=== PATIENT | male | born 1950 | race Caucasian/White ===

== ENCOUNTER 2016-04-28 18:28 | Inpatient (IN) | payer OTHER ==
[2016-04-28] MEDS ORDERED: ATIVAN IV ONE (18:56)
[2016-04-28] MEDS ORDERED: ATIVAN ONE (18:56)
[2016-04-28 18:58] LABS: BASO% 0.1 % (0.0-0.8); HEMATOCRIT 38.2 % (42.0-52.0); HEMOGLOBIN 13.4 g/dL (14.0-18.0); IMM GRAN# 0.03 X1000 (0.0-0.04); IMM GRAN% 0.3 % (0.0-0.5); LYMPH# 0.66 X1000 (1.2-3.4); LYMPH% 6.1 % (20.5-51.1); MANUAL DIFF NEEDED? NO; MCH 30.5 PG (27-31); MCHC 35.1 g/dL (33-37); MONO# 0.79 X1000 (0.11-0.59); MONO% 7.3 % (1.7-9.3); MPV 9.9 FL (7.4-10.4); NEUT% 86.2 % (42.2-75.2); PLT 309 X1000 (130-400); RBC 4.39 XMIL (4.7-6.1)
[2016-04-28 19:21] LABS: PROTIME 13.5 Seconds (12.1-15.5)
[2016-04-28 19:22] LABS: PTT PL 28.5 Seconds (22.6-43.9)
[2016-04-28 19:25] LABS: ALBUMIN 4.2 g/dL (3.5-5.0); CALCIUM 9.5 mg/dL (8.8-10.2); POTASSIUM 4.2 mmol/L (3.5-5.1); TOTAL BILIRUBIN 0.9 mg/dL (0.20-1.00); TOTAL PROTEIN 6.9 g/dL (6.3-8.3)
--- NOTE | 2016-04-28 19:28 | PROVIDER DOCUMENTATION ---
HPI-Neurological Disorder - General Chief Complaint: Altered Mental Status Stated Complaint: dizziness Time Seen by Provider: 04/28/16 18:47 Source: EMS Allergies/Adverse Reactions: Patient Allergies Allergy/AdvReac Type Severity Reaction Status Date / Time No Known Allergies Allergy Verified 04/28/16 18:34 Home Medications: Home Medication List Medication Instructions Recorded Confirmed Last Taken Type Leflunomide [Arava] 1 tab PO DAILY 11/09/15 04/28/16 11/09/15 History Butalb/APAP/Caffeine [Fioricet] 1 each PO Q4H PRN PRN #14 capsule 02/28/1604/28 Unknown Rx - History of Present Illness-Neuro Nature of Presenting Problem: PT PRESENTS TO THE ED CONFUSED,NOT COMMUNICATING.EMS REPORTS THEY WHERE CALLED TO THE BAR AND 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 Onset/Duration: reports: just prior to arrival Timing: reports: still present Context: reports: other (CONFUSED AND NOT COMMUNICATING.) Character of Altered Mental Status: reports: confused, trouble concentrating Any recent trauma/injury?: reports: none New weakness or altered sensation location:: reports: none Cognitive Baseline: alert but confused Gait Baseline: walks without assistance Similar Symptoms Previously?: No Recently seen or treated by another doctor?: No - Seizure First time to have a seizure?: No Episode Frequency: no prior episodes Status Epilepticus: No Preceding symptoms/context:: none Review of Systems - Adult - REVIEW OF SYSTEMS - ADULT ROS:: unobtainable per condition Constitutional: reports: fever Past History - Adult - PAST MEDICAL HISTORY-ADULT Review of Records: reports: Old Records Reviewed, Nursing Assessment Review, Medications Reviewed Cardiovascular: reports: HTN Musculoskeletal: reports: arthritis (rheumatoid) Neurological: reports: headaches/migraines - PRIOR SURGERIES/PROCEDURES Surgical/Procedure History: reports: reviewed, not pertinent - IMMUNIZATION STATUS Childhood Immunizations: See Nurse Assessment Flu Vaccine: See Nurse Assessment - FAMILY HISTORY Family History: reviewed, not pertinent Physical Exam- Neurological - Physical Exam-Neuro Initial Vital Signs Reviewed: Yes General Appearance: no apparent distress, obtunded Progress - PLAN OF CARE/RESULTS Progress/Plan/Lab Results: Laboratory Results - last 24 hr 04/28/16 04/28/16 04/28/16 18:33 18:43 18:43 WBC RBC Hgb Hct MCV MCH MCHC RDW Std Deviation Plt Count MPV Immature Gran % (Auto) Neut % (Auto) Lymph % (Auto) Morrow % (Auto) Eos % (Auto) Baso % (Auto) Immature Gran # (Auto) Neut # (Auto) Lymph # (Auto) Morrow # (Auto) Eos # (Auto) Baso # (Auto) PT INR APTT (Factor Assay) Sodium 127 L Potassium 4.2 Chloride 92 L Carbon Dioxide 17 L Anion Gap 18 BUN 18 Creatinine 1.3 H Estimated GFR/1.73 m2 55 BUN/Creatinine Ratio 14 Glucose 138 H POC Glucose 118 H Calculated Osmolality 259 Calcium 9.5 Total Bilirubin 0.90 AST 15 ALT 16 Alkaline Phosphatase 124 H Creatine Kinase 68 Troponin T Total Protein 6.9 Albumin 4.2 Globulin 3.0 Albumin/Globulin Ratio 2.0 Plasma Lactate 2.4 H Urine Source Urine Color Urine Clarity Urine pH Ur Specific [place] Urine Protein Urine Ketones Urine Blood Urine Nitrite Urine Bilirubin Urine Urobilinogen Urine Microscopic RBC Urine WBC Urine Microscopic WBC Urine Glucose Urine Opiates Screen Ur Oxycodone Screen Urine Methadone Screen Ur Barbituates Screen Ur Tricyclics Screen Ur Phencyclidine Scrn Ur Amphetamines Screen U Methamphetamines Scrn Urine MDMA Screen U Benzodiazepines Scrn Urine Cocaine Screen U Cannabinoids Screen Plasma/Serum Ethyl Alc 04/28/16 04/28/16 04/28/16 18:43 18:43 18:43 WBC 10.78 RBC 4.39 L Hgb 13.4 L Hct 38.2 L MCV 87.0 MCH 30.5 MCHC 35.1 RDW Std Deviation 14.2 Plt Count 309 MPV 9.9 Immature Gran % (Auto) 0.3 Neut % (Auto) 86.2 H Lymph % (Auto) 6.1 L Morrow % (Auto) 7.3 Eos % (Auto) 0.0 Baso % (Auto) 0.1 Immature Gran # (Auto) 0.03 Neut # (Auto) 9.29 H Lymph # (Auto) 0.66 L Morrow # (Auto) 0.79 H Eos # (Auto) 0.00 Baso # (Auto) 0.01 PT INR APTT (Factor Assay) Sodium Potassium Chloride Carbon Dioxide Anion Gap BUN Creatinine Estimated GFR/1.73 m2 BUN/Creatinine Ratio Glucose POC Glucose Calculated Osmolality Calcium Total Bilirubin AST ALT Alkaline Phosphatase Creatine Kinase Troponin T < 0.010 Total Protein Albumin Globulin Albumin/Globulin Ratio Plasma Lactate Urine Source Urine Color Urine Clarity Urine pH Ur Specific [place] Urine Protein Urine Ketones Urine Blood Urine Nitrite Urine Bilirubin Urine Urobilinogen Urine Microscopic RBC Urine WBC Urine Microscopic WBC Urine Glucose Urine Opiates Screen Ur Oxycodone Screen Urine Methadone Screen Ur Barbituates Screen Ur Tricyclics Screen Ur Phencyclidine Scrn Ur Amphetamines Screen U Methamphetamines Scrn Urine MDMA Screen U Benzodiazepines Scrn Urine Cocaine Screen U Cannabinoids Screen Plasma/Serum Ethyl Alc 04/28/16 04/28/16 04/28/16 18:43 19:30 19:30 WBC RBC Hgb Hct MCV MCH MCHC RDW Std Deviation Plt Count MPV Immature Gran % (Auto) Neut % (Auto) Lymph % (Auto) Morrow % (Auto) Eos % (Auto) Baso % (Auto) Immature Gran # (Auto) Neut # (Auto) Lymph # (Auto) Morrow # (Auto) Eos # (Auto) Baso # (Auto) PT 13.5 INR 1.00 APTT (Factor Assay) 28.5 Sodium Potassium Chloride Carbon Dioxide Anion Gap BUN Creatinine Estimated GFR/1.73 m2 BUN/Creatinine Ratio Glucose POC Glucose Calculated Osmolality Calcium Total Bilirubin AST ALT Alkaline Phosphatase Creatine Kinase Troponin T Total Protein Albumin Globulin Albumin/Globulin Ratio Plasma Lactate Urine Source VOIDED Urine Color YELLOW Urine Clarity SLIGHTLY CLOUDY A Urine pH 7.0 Ur Specific [place] 1.005 Urine Protein 2+(100 mg/dL) A Urine Ketones TRACE Urine Blood NEGATIVE Urine Nitrite NEGATIVE Urine Bilirubin NEGATIVE Urine Urobilinogen NORMAL Urine Microscopic RBC Not Reportable Urine WBC NEGATIVE Urine Microscopic WBC <10 Urine Glucose NEGATIVE Urine Opiates Screen NONE DETECTED Ur Oxycodone Screen NONE DETECTED Urine Methadone Screen NONE DETECTED Ur Barbituates Screen NONE DETECTED Ur Tricyclics Screen PRESUMPTIVE POSITIVE A Ur Phencyclidine Scrn NONE DETECTED Ur Amphetamines Screen PRESUMPTIVE POSITIVE A U Methamphetamines Scrn NONE DETECTED Urine MDMA Screen PRESUMPTIVE POSITIVE A U Benzodiazepines Scrn NONE DETECTED Urine Cocaine Screen NONE DETECTED U Cannabinoids Screen NONE DETECTED Plasma/Serum Ethyl Alc - CT/MRI 1 CT Study: Head Impression: Normal CT Results: NEGATIVE - CONSULTS/PCP/HOSPITALIST Notification #1 *Consult/PCP/Hospitalist*: Time Discussed: 20:05 Consult Disposition: Admit Departure - Departure Time of Disposition Order: 21:52 DIAGNOSIS: Altered mental status Qualifiers: Altered mental status type: disorientation Qualified Code(s): R41.0 - Disorientation, unspecified Disposition: ADMITTED INPATIENT 09 Certified Medical Emergency: Emergent Condition: Stable Attestation - Scribe Verification/Attestation Scribe:: Lloyd Rosa Acting as Scribe for:: Dwight Acharya Scribe documention review:: This chart was documented by a scribe and accurately reflects the service the provider performed and the decisions made by the provider.
[2016-04-28 19:32] LABS: URINE CULTURE PL NEEDED? NO; URINE SOURCE VOIDED
[2016-04-28 19:40] LABS: BILIRUBIN URINE NEGATIVE (NEGATIVE); BLOOD URINE NEGATIVE (NEGATIVE); CLARITY SLIGHTLY CLOUDY (CLEAR); COLOR YELLOW; GLUCOSE URINE NEGATIVE (NEGATIVE); SP GRAVITY URINE 1.005; UR AMPHETAMINES QUAL PRESUMPTIVE POSITIVE (NONE DETECT); UR BARBITUATES QUAL NONE DETECTED (NONE DETECT); UR BENZODIAZEPIN QUAL NONE DETECTED (NONE DETECT); UR COCAINE QUAL NONE DETECTED (NONE DETECT); UR MDMA QUAL PRESUMPTIVE POSITIVE (NONE DETECT); UR METHADONE QUAL NONE DETECTED (NONE DETECT); UR METHAMPHETAMINE QUAL NONE DETECTED (NONE DETECT); UR OPIATES QUAL NONE DETECTED (NONE DETECT); UR OXYCODONE QUAL NONE DETECTED (NONE DETECT); UR PCP QUAL NONE DETECTED (NONE DETECT)
[2016-04-28 19:41] LABS: LEUKOCYTES URINE NEGATIVE (NEGATIVE); NITRITE URINE NEGATIVE (NEGATIVE); PROTEIN URINE 2+(100 mg/dL) mg/dL (NEGATIVE); UR CANNABINOIDS QUAL NONE DETECTED (NONE DETECT); UR TCA QUAL PRESUMPTIVE POSITIVE (NONE DETECT); UROBILINOGEN URINE NORMAL
[2016-04-28 19:42] LABS: URINE WBC <10 /HPF (<10)
[2016-04-28] MEDS ORDERED: ZOFRAN IV PRN (21:52)
[2016-04-28] MEDS: NS 1,000 ML IV SCH (23:20)
[2016-04-29] MEDS ORDERED: ROBAXIN PO ONE (02:20)
[2016-04-29] MEDS ORDERED: LIORESAL PO ONE (04:30)
[2016-04-29] MEDS ORDERED: TORADOL IV PRN (04:31)
[2016-04-29] MEDS: NS 1,000 ML IV SCH ×4 (06:05→22:59)
--- NOTE | 2016-04-29 08:00 | Diag Imaging Result Document ---
PROCEDURE NAME: HEAD W/O CONTRAST - 04/28/2016 CT BRAIN WITHOUT CONTRAST. DOSE REDUCTION PROTOCOL. FINDINGS: There is quite a bit of motion on the images. No parenchymal hemorrhage. No epidural or subdural hematoma. No subarachnoid hemorrhage. There is diffuse atrophy. No mass identified on this noncontrasted exam. No hydrocephalus. No sinus opacification. IMPRESSION: 1. No hemorrhage. 2. There is mild atrophy. A preliminary report was given at 8:01 p.m..
[2016-04-29 11:00] LABS: AGAP 11; BUN 13 mg/dL (8-22); CALCIUM 8.9 mg/dL (8.8-10.2); CHLORIDE 102 mmol/L (98-107); COSMO 266; POTASSIUM 3.7 mmol/L (3.5-5.1); SODIUM 133 mmol/L (136-145); TCO2 20 mmol/L (25-35)
[2016-04-29 11:32] LABS: UR AMPHETAMINES QUAL PRESUMPTIVE POSITIVE (NONE DETECT); UR BARBITUATES QUAL NONE DETECTED (NONE DETECT); UR BENZODIAZEPIN QUAL NONE DETECTED (NONE DETECT); UR COCAINE QUAL NONE DETECTED (NONE DETECT); UR MDMA QUAL PRESUMPTIVE POSITIVE (NONE DETECT); UR METHADONE QUAL NONE DETECTED (NONE DETECT)
[2016-04-29 11:33] LABS: UR CANNABINOIDS QUAL NONE DETECTED (NONE DETECT); UR METHAMPHETAMINE QUAL PRESUMPTIVE POSITIVE (NONE DETECT); UR OPIATES QUAL NONE DETECTED (NONE DETECT); UR OXYCODONE QUAL NONE DETECTED (NONE DETECT); UR PCP QUAL NONE DETECTED (NONE DETECT); UR TCA QUAL PRESUMPTIVE POSITIVE (NONE DETECT)
[2016-04-29] MEDS: PERCOCET-10 PO SCH ×3 (12:29→20:28)
--- NOTE | 2016-04-29 13:36 | Diag Imaging Result Document ---
PROCEDURE NAME: MRI BRAIN W W/O CONTRAST - 04/29/2016 MRI BRAIN WITH AND WITHOUT: FINDINGS: Axial, sagittal, and coronal images obtained in multiple sequences. These are followed by post contrasted axial and coronal images. No recent infarct. No significant microvascular ischemic changes. No mass or midline shift. No enhancing lesion on the post contrasted images. No hydrocephalus. No epidural or subdural fluid collection. No sinus opacification. No air fluid levels. IMPRESSION: No recent infarct or mass.
--- NOTE | 2016-04-29 17:52 | HISTORY AND PHYSICAL ---
CHIEF COMPLAINT: Altered mentation. HISTORY OF PRESENT ILLNESS: A 65-year-old white male, with severe rheumatoid arthritis on chronic medications. He was called from a bar where he was very confused and agitated. He does not drink regularly. No drugs. He was at a [employer] tournament. He was not acting normally, but there was some concern medications had been given to him secretly. When he came to the ER, he was extremely agitated and reportedly disoriented and combative. He had to be given several medications to calm him down. His urine drug screen was positive for methamphetamine, amphetamine, TCAs which he does take and MDMA. The patient had no other major issues. PAST MEDICAL HISTORY: 1. RA since 1968. 2. Hypertension. 3. Chronic headaches. 4. Migraines. SURGICAL HISTORY: Denies. FAMILY HISTORY: Father of colon CA. Mother of brain CA. SOCIAL HISTORY: No tobacco or ethanol. Disabled. Lives alone. ALLERGIES: No known drug allergies. MEDICATIONS: He currently Arava 10 daily, Cambia 50 daily. Zovirax 400 daily, Ambien 10 at night. Baclofen 10 t.i.d., Norpramin 10 at bedtime, Prilosec 40 daily, Percocet 4 times a day, Pamelor 25 at bedtime, prednisone 10 daily, Lyrica 600 at bedtime, Prinivil 20 b.i.d., and Fioricet. REVIEW OF SYSTEMS: Otherwise negative times a 10 point review of systems. PHYSICAL EXAMINATION: VITAL SIGNS: Blood pressure 165/85, heart rate 62, respiratory rate of 19, temperature 98 degrees. GENERAL: A pale gentleman in no acute distress. HEAD: Normocephalic, atraumatic. EYES: Pupils equal, round, reactive to light. Extraocular movements were intact. ENT: Moist mucous membranes. NECK: Supple. CARDIOVASCULAR EXAM: Regular rate and rhythm. No murmurs, gallops, or rubs. PULMONARY: Bilateral breath sounds. Clear to auscultation. GI: Soft, nontender, nondistended. Bowel sounds are positive. EXTREMITIES: No clubbing or cyanosis. LYMPHATICS: No peripheral edema. NEUROLOGICAL: Nonfocal. MUSCULOSKELETAL: He definitely had MCP swelling along his 1st, 2nd and 3rd MCPs, as well as his DIPs. He had a swan-neck deformity in his right 4th and 5th finger. ASSESSMENT: Briefly, a 64-year-old male presenting with acute encephalopathy. Laboratory data was unclear except for a low sodium. Urine was negative. UDS was positive again for tricyclics amphetamines and MDMA. DIAGNOSES: 1. Acute encephalopathy. We will continue to follow. Still most suspicious for a drug intoxication, either surreptitious or unintentional. We will continue supportive care and follow. He does have a chronic immune suppression so pursue further imaging to evaluate for any encephalitis, meningitis. 2. Rheumatoid arthritis. We will continue his regular medications and follow. DISPOSITION: Stable, likely home tomorrow depending on how he does clinically.
[2016-04-29] MEDS: LIORESAL PO SCH (20:28)
[2016-04-29] MEDS ORDERED: AMBIEN PO SCH (21:00)
[2016-04-29] MEDS ORDERED: PATIENT'S OWN MED PO SCH (21:00)
[2016-04-29] MEDS ORDERED: LYRICA PO SCH (21:00)
[2016-04-30] MEDS: NS 1,000 ML IV SCH ×2 (02:26→07:04)
[2016-04-30 07:05] LABS: AGAP 10; ALBUMIN 2.5 g/dL (3.5-5.0); ALKALINE PHOSPHATASE 70 U/L (32-122); BUN 6 mg/dL (8-22); COSMO 285; GOT 12 U/L (10-34); GPT 11 U/L (10-44); SODIUM 145 mmol/L (136-145); TCO2 17 mmol/L (25-35); TOTAL PROTEIN 4.2 g/dL (6.3-8.3)
[2016-04-30 07:12] LABS: CHLORIDE 117 mmol/L (98-107); POTASSIUM 2.6 mmol/L (3.5-5.1)
[2016-04-30 07:14] LABS: CALCIUM 6.4 mg/dL (8.8-10.2)
[2016-04-30] MEDS ORDERED: CALCIUM GLUCONATE IV PUSH ONE (07:20)
[2016-04-30 07:25] LABS: HEMOGLOBIN 9.7 g/dL (14.0-18.0); MCH 30.2 PG (27-31); MCHC 33.4 g/dL (33-37); MCV 90.3 FL (81-99); MPV 9.8 FL (7.4-10.4); RBC 3.21 XMIL (4.7-6.1)
[2016-04-30] MEDS ORDERED: CALCIUM GLUCONATE ONE (07:42)
[2016-04-30] MEDS: LIORESAL PO SCH (07:57)
[2016-04-30] MEDS ORDERED: CALCIUM GLUCONATE 1 GM in NS 50 ML IV ONE (08:00)
[2016-04-30] MEDS: PERCOCET-10 PO SCH ×2 (08:42→13:04)
[2016-04-30] MEDS ORDERED: ARAVA PO SCH (09:00)
[2016-04-30] MEDS ORDERED: PREDNISONE PO SCH (09:00)
[2016-04-30] MEDS ORDERED: ZOVIRAX PO SCH (09:00)
[2016-04-30] MEDS ORDERED: PRILOSEC PO SCH (09:00)
[2016-04-30] MEDS ORDERED: KLOR-CON PO ONE (10:51)
[2016-04-30 16:52] VITALS: BP 152/82
--- NOTE | 2016-04-30 17:46 | DISCHARGE SUMMARY ---
ADMISSION DATE: 04/28/2016 DISCHARGE DATE: DISCHARGE DIAGNOSES: 1. Acute encephalopathy likely related to drug intoxication which apparently was a surreptitious event or was externally administered. He was unaware of it apparently. The patient has noted history of rheumatoid arthritis. 2. Hypokalemia. 3. Hypocalcemia. Patient came in with acute agitation, confusion. 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 He does not usually abuse alcohol or drugs, illegal or otherwise. He is on several medications. He was very combative and agitated, although by the time he got to the ICU all that had resolved. Urine drug screen was positive for methamphetamine, TCAs which he does take, and MDMA. He again denied any taking of the medication, he reports a friend or policy intern that was with him had noted that he possibly had gotten something in his drink. In any case, we repeated the drug screen, it was still positive for tricyclics, amphetamines, now methamphetamines and MDMA. The only medication that had cross- reactivity is the desipramine. That can show up as a positive for amphetamines. In any case, the patient really was stable. No major issues. He did have some hypokalemia and hypocalcemia but that responded well to supplementation, and he was discharged in stable condition on regular medications. I did tell him to hold the Pamelor until he could be seen by his PCP because he is on 2 different tricyclics, at least per our records. That may be an error, however, we are going to follow that. I will discharge him on some potassium supplementation and recommend follow up with his PCP next week, that is Dr. Watters, for further evaluation. He did have an MRI done here because of his immunosuppressed status but that was negative for any acute process or really any chronic process either. Thirty-two minute discharge.
== END 2016-04-30 17:57 | disposition home or self-care (01) | DRG 917 ==
LOC: P.ED 18:28 → P.ICU 22:50 → OBSVTOIN 22:50 → P.MEDSURG 04-29 15:36
PROVIDERS: ATTEND Internal Medicine
DX: T43 Poisoning by, adverse effect of and underdosing of psychotropic drugs, not elsewhere classified (principal); G92 Toxic encephalopathy; T43.623A Poisoning by amphetamines, assault, initial encounter; M06.9 Rheumatoid arthritis, unspecified; I10 Essential (primary) hypertension; E87.6 Hypokalemia; E83.51 Hypocalcemia; Z80.0 Family history of malignant neoplasm of digestive organs; Z80.8 Family history of malignant neoplasm of other organs or systems; Z79.899 Other long term (current) drug therapy; Z79.891 Long term (current) use of opiate analgesic; Z79.52 Long term (current) use of systemic steroids
CPT/HCPCS: 36415; 51702; 70450; 70553; 80048; 80053; 80305; 81001; 82550; 82948; 83605; 83935; 84300; 84443; 84484; 85025; 85027; 85610; 85730; 86140; 93005; 94761; 96374; A9579; G0480; J0610; J1885; J2060; J7030; J7512; 80320

== ENCOUNTER 2019-03-27 13:44 | Inpatient (IN) ==
[2019-03-27] MEDS ORDERED: NS 1,000 ML IV ONE (14:06)
[2019-03-27 14:15] LABS: HEMATOCRIT 37.3 % (42.0-52.0); HEMOGLOBIN 12.2 g/dL (14.0-18.0); IMM GRAN# 0.05 X1000 (0.0-0.04); IMM GRAN% 0.5 % (0.0-0.5); LYMPH# 0.96 X1000 (1.2-3.4); LYMPH% 9.3 % (20.5-51.1); MCH 27.4 PG (27-31); MCHC 32.7 g/dL (33-37); MCV 83.6 FL (81-99); MONO# 0.85 X1000 (0.11-0.59); MONO% 8.2 % (1.7-9.3); MPV 10.5 FL (7.4-10.4); PLT 204 X1000 (130-400); RBC 4.46 XMIL (4.7-6.1); RDW 18.1 % (11.5-14.5); WBC 10.36 X1000 (4.8-10.8)
[2019-03-27] MEDS ORDERED: XARELTO PO ONE (14:30)
[2019-03-27] MEDS ORDERED: CARDIZEM IV ONE (14:30)
[2019-03-27 14:32] LABS: CALCIUM 8.3 mg/dL (8.8-10.2); CREATININE 1.4 mg/dL (0.7-1.2); POTASSIUM 5.1 mmol/L (3.5-5.1); TOTAL BILIRUBIN 0.3 mg/dL (0.20-1.00); TOTAL PROTEIN 6.3 g/dL (6.3-8.3)
--- NOTE | 2019-03-27 14:38 | Diag Imaging Result Doc PS360 ---
CHEST-1 VIEW - 03/27/2019 INDICATION: syncope, aflutter COMPARISON: 02/13/2018 FINDINGS: Stable cardiomegaly and pulmonary vascular congestion. No infiltrates or edema. No pneumothorax or large pleural effusion. IMPRESSION: Significant cardiomegaly and pulmonary vascular congestion. Electronically signed by Pal Grissom 03/27/2019 2:35 PM
--- NOTE | 2019-03-27 14:39 | Diag Imaging Result Doc PS360 ---
CT HEAD W/O CONTRAST - 03/27/2019 INDICATION: altered MSE COMPARISON: 01/03/2018 FINDINGS: The ventricles and sulci are normal in size and contour. No intracranial mass or hemorrhage. The skull is intact. The sinuses mastoids and middle ears are clear. IMPRESSION: Negative exam. This exam was performed using automated exposure control, adjustment of mA or kV according to patient size, and/or use of iterative reconstruction technique Electronically signed by Pal Grissom 03/27/2019 2:36 PM
[2019-03-27 15:22] LABS: UR AMPHETAMINES QUAL NONE DETECTED (NONE DETECT); UR BARBITUATES QUAL NONE DETECTED (NONE DETECT); UR BENZODIAZEPIN QUAL NONE DETECTED (NONE DETECT); UR CANNABINOIDS QUAL NONE DETECTED (NONE DETECT); UR COCAINE QUAL NONE DETECTED (NONE DETECT); UR METHADONE QUAL PRESUMPTIVE POSITIVE (NONE DETECT); UR METHAMPHETAMINE QUAL NONE DETECTED (NONE DETECT); UR OPIATES QUAL NONE DETECTED (NONE DETECT); UR OXYCODONE QUAL NONE DETECTED (NONE DETECT); UR PCP QUAL NONE DETECTED (NONE DETECT); UR PROPOXYPHENE QUAL NONE DETECTED (NONE DETECT); UR TCA QUAL PRESUMPTIVE POSITIVE (NONE DETECT)
--- NOTE | 2019-03-27 15:26 | EKG Report ---
Test Performed on : 03/27/2019 1:49:03 PM Test Reason : syncope, aflutter Blood Pressure : / mmHG Vent. Rate : 095 BPM Atrial Rate : 394 BPM P-R Int : 000 ms QRS Dur : 098 ms QT Int : 338 ms P-R-T Axes : 000 -44 058 degrees QTc Int : 424 ms Atrial flutter. with variable AV block. Left axis deviation Minimal voltage criteria for LVH, may be normal variant Abnormal ECG When compared with ECG of 11-FEB-2018 10:22, Atrial flutter. has replaced Sinus rhythm. Vent. rate has increased BY 50 BPM Unconfirmed Result
--- NOTE | 2019-03-27 18:17 | PROVIDER DOCUMENTATION ---
This chart was entered by Alize Hallman Scribe, acting as scribe for Jules Haq MD. HPI-Syncope/Dizziness - General Chief Complaint: Syncope Stated Complaint: UNRESPONSIVE Time Seen by Provider: 03/27/19 14:01 Source: patient, EMS Allergies/Adverse Reactions: Patient Allergies Allergy/AdvReac Type Severity Reaction Status Date / Time No Known Allergies Allergy Verified 03/27/19 13:55 Home Medications: Home Medication List Medication Instructions Recorded Confirmed Last Taken Type Omeprazole [Prilosec] 40 mg PO DAILY 04/29/16 03/27/19 02/10/18 History Trazodone HCl 2 tab PO QHS 01/02/18 03/27/19 02/10/18 History Acyclovir [Zovirax] 800 mg PO QHS 02/11/18 03/27/19 02/10/18 History Buprenorphine HCl/Naloxone HCl 8 mg PO BID 02/11/18 03/27/19 02/11/18 04:00 History [Suboxone 8 mg/2 mg Sl Film] Leflunomide 20 mg PO QHS 02/11/18 03/27/19 02/10/18 History Pregabalin [Lyrica] 150 mg PO BID 02/11/18 03/27/19 02/10/18 History Furosemide [Lasix] 40 mg PO DAILY #30 tab 02/17/18 03/27/19 Unknown Rx LISINOpril [Prinivil] 20 mg PO BID #60 tab 02/17/18 03/27/19 Unknown Rx Butalbital/Acetaminophen 1 tab PO BID 03/27/19 03/27/19 Unknown History [Butalbital-Acetaminophn 50-300] Nortriptyline [Pamelor] 75 mg PO QHS 03/27/19 03/27/19 Unknown History - History of Present Illness-Syncope/Dizzy Nature of Presenting Problem: Patient is a 68 year old male who presents to the ED via EMS after being found unresponsive. EMS states bystanders stated patient was found unresponsive and they started CPR. EMS reports the CPR was only for 30 seconds to a minute. EMS states bystanders reported the patient may have taken someone else's Methadone today. Patient states he has been having shortness of breath and dizziness for 1 month. Denies chest pain, nausea, vomiting, diarrhea, rectal bleeding and vomiting blood. Prior Episodes: reports: single episode today Onset/Duration: reports: just prior to arrival Timing: reports: gone now Symptoms prior to episode: reports: none Context: reports: became unresponsive Current Symptoms: reports: short of breath, dizzy Review of Systems - Adult - REVIEW OF SYSTEMS - ADULT Constitutional: reports: no symptoms reported Eyes: reports: no symptoms reported Ears, Nose, Mouth & Throat: reports: no symptoms reported Cardiovascular: reports: no symptoms reported Respiratory: reports: see HPI, shortness of breath Gastrointestinal: reports: no symptoms reported. denies: hematemesis, diarrhea, nausea, rectal bleeding, vomiting Genitourinary: reports: no symptoms reported Musculoskeletal: reports: no symptoms reported Integumentary: reports: no symptoms reported Neurological: reports: see HPI, dizziness/vertigo (dizziness) Psychiatric: reports: no symptoms reported Endocrine: reports: no symptoms reported Hematologic/Lymphatic: reports: no symptoms reported Allergic/Immunologic: reports: no symptoms reported All Other Systems: Reviewed and Negative Past History - Adult - PAST MEDICAL HISTORY-ADULT Review of Records: reports: Old Records Reviewed, Nursing Assessment Review, Medications Reviewed, Social history reviewed & non-contributory. Major Childhood Illnesses: reports: denies history Cardiovascular: reports: HTN Respiratory: reports: denies history Gastrointestinal: reports: denies history Obstetrical/Gynecological: reports: denies history Genitourinary: reports: denies history Musculoskeletal: reports: arthritis (rheumatoid), chronic pain Neurological: reports: headaches/migraines Psychiatric: reports: depression Endocrine/Immune: reports: denies history Other Conditions: reports: denies history - PRIOR SURGERIES/PROCEDURES Surgical/Procedure History: reports: reviewed, not pertinent - IMMUNIZATION STATUS Childhood Immunizations: See Nurse Assessment Flu Vaccine: See Nurse Assessment - FAMILY HISTORY Family History: reviewed, not pertinent - SOCIAL HISTORY Smoking: denies Substance Use: denies Physical Exam-General - PHYSICAL EXAM-ADULT Initial Vital Signs Reviewed: Yes - CONSTITUTIONAL General Appearance: no apparent distress, other (drowsy) - HEAD, EARS, NOSE, MOUTH & THROAT HENMT: normocephalic/atraumatic, other (dry mucous membranes) - RESPIRATORY Respiratory: chest non-tender, lungs clear, normal breath sounds - CARDIOVASCULAR Cardiovascular: regular rate, rhythm, no gallop, no murmur - GASTROINTESTINAL (ABDOMEN) Abdominal Exam: normal bowel sounds, non tender, soft - MUSCULOSKELETAL Extremity: non-tender, normal inspection - SKIN Integumentary: normal color, normal turgor, warm/dry - NEUROLOGIC Neurologic: grossly normal, no motor/sensory deficits. negative: aphasia, facial droop, motor weakness, sensory deficit - PSYCHIATRIC Psych/Mental Status: other (drowsy) Progress - PLAN OF CARE/RESULTS Progress/Plan/Lab Results: Vital Signs - 8 hr 03/27/19 13:50 03/27/19 14:50 03/27/19 15:56 Temperature 97.9 F 98.0 F 98.0 F Pulse Rate 94 H 70 77 Respiratory Rate 20 18 16 Blood Pressure 106/77 139/81 159/90 O2 Sat by Pulse Oximetry 97 99 100 03/27/19 17:29 Temperature Pulse Rate 79 Respiratory Rate 16 Blood Pressure 163/109 O2 Sat by Pulse Oximetry 98 Laboratory Results - last 24 hr 03/27/19 03/27/19 03/27/19 13:54 13:54 13:54 WBC 10.36 RBC 4.46 L Hgb 12.2 L Hct 37.3 L MCV 83.6 MCH 27.4 MCHC 32.7 L RDW Std Deviation 18.1 H Plt Count 204 MPV 10.5 H Immature Gran % (Auto) 0.5 Neut % (Auto) 82.0 H Lymph % (Auto) 9.3 L Emmons % (Auto) 8.2 Eos % (Auto) 0.0 Baso % (Auto) 0.0 Immature Gran # (Auto) 0.05 H Neut # (Auto) 8.50 H Lymph # (Auto) 0.96 L Emmons # (Auto) 0.85 H Eos # (Auto) 0.00 Baso # (Auto) 0.00 Sodium 133 L Potassium 5.1 Chloride 93 L Carbon Dioxide 25 Anion Gap 14 BUN 30 H Creatinine 1.4 H Estimated GFR/1.73 m2 50 BUN/Creatinine Ratio 21 Glucose 107 H Calculated Osmolality 273 Calcium 8.3 L Magnesium 2.0 Total Bilirubin 0.30 AST 19 ALT 29 Alkaline Phosphatase 147 H Troponin T High Sens 22 H Total Protein 6.3 Albumin 4.0 Globulin 2.0 Albumin/Globulin Ratio 2.0 TSH Urine Opiates Screen Ur Oxycodone Screen Urine Methadone Screen U Propoxyphene Qual Ur Barbituates Screen Ur Tricyclics Screen Ur Phencyclidine Scrn Ur Amphetamines Screen U Methamphetamines Scrn U Benzodiazepines Scrn Urine Cocaine Screen U Cannabinoids Screen 03/27/19 03/27/19 13:54 14:53 WBC RBC Hgb Hct MCV MCH MCHC RDW Std Deviation Plt Count MPV Immature Gran % (Auto) Neut % (Auto) Lymph % (Auto) Emmons % (Auto) Eos % (Auto) Baso % (Auto) Immature Gran # (Auto) Neut # (Auto) Lymph # (Auto) Emmons # (Auto) Eos # (Auto) Baso # (Auto) Sodium Potassium Chloride Carbon Dioxide Anion Gap BUN Creatinine Estimated GFR/1.73 m2 BUN/Creatinine Ratio Glucose Calculated Osmolality Calcium Magnesium Total Bilirubin AST ALT Alkaline Phosphatase Troponin T High Sens Total Protein Albumin Globulin Albumin/Globulin Ratio TSH 1.13 Urine Opiates Screen NONE DETECTED Ur Oxycodone Screen NONE DETECTED Urine Methadone Screen PRESUMPTIVE POSITIVE A U Propoxyphene Qual NONE DETECTED Ur Barbituates Screen NONE DETECTED Ur Tricyclics Screen PRESUMPTIVE POSITIVE A Ur Phencyclidine Scrn NONE DETECTED Ur Amphetamines Screen NONE DETECTED U Methamphetamines Scrn NONE DETECTED U Benzodiazepines Scrn NONE DETECTED Urine Cocaine Screen NONE DETECTED U Cannabinoids Screen NONE DETECTED Orders Category Date Time Status CHEST-1 VIEW [RAD] Stat Exams 03/27/19 14:[address] HEAD W/O CONTRAST [CT] Stat Exams 03/27/19 14:03 Completed CBC WITH DIFF [HEME] Stat Lab 03/27/19 13:54 Completed COMPREHENSIVE METABOLIC PANEL [CHEM] Stat Lab 03/27/19 13:54 Completed MAGNESIUM [CHEM] Stat Lab 03/27/19 13:54 Completed T4 Stat Lab 03/27/19 13:54 Received TROPONIN T HIGH SENSITIVITY Stat Lab 03/27/19 13:54 Completed TSH Stat Lab 03/27/19 13:54 Completed URINE DRUG SCREEN PL Stat Lab 03/27/19 14:53 Completed 0.9% Sodium Chloride Inj [Ns] 1,000 ml Med 03/27/19 14:06 Discontinued IV 999 mls/hr Diltiazem [Cardizem] Med 03/27/19 14:30 Discontinued 20 mg IV NOW ONE Rivaroxaban [Xarelto] Med 03/27/19 14:30 Discontinued 10 mg PO NOW ONE EKG [EKG] Stat Ther 03/27/19 14:03 Draft Transfer/Admit Order [TRANSFER] Routine Transfer 03/27/19 16:47 Ordered Result Diagrams: 03/27/19 13:54 03/27/19 13:54 - REASSESSMENT Reassessment #1 Time Reassessed: 15:20 Status: improving (pt somewhat more alert; after cardizem he has rate control but remains in AVF w/ block. will discuss with Dr. Hirsch for admit.) - XRAY 1 XRAY Study: Chest Impression: See EMR Report (CHEST-1 VIEW - 03/27/2019 INDICATION: syncope, aflutter COMPARISON: 02/13/2018 FINDINGS: Stable cardiomegaly and pulmonary vascular congestion. No infiltrates or edema. No pneumothorax or large pleural effusion. IMPRESSION: Significant cardiomegaly and pulmonary vascular congestion. Electronically signed by Pal Grissom 03/27/2019 2:35 PM 03/27/19 1435 Interpreting Physician: Pal Grissom MD Dictated Date/Time: 03/27/19 1435 cc: Jules Haq MD;) - CT/MRI 1 CT Study: Head Impression: See EMR Report ( CT HEAD W/O CONTRAST - 03/27/2019 INDICATION: altered MSE COMPARISON: 01/03/2018 FINDINGS: The ventricles and sulci are normal in size and contour. No intracranial mass or hemorrhage. The skull is int act. The sinuses mastoids and middle ears are clear. IMPRESSION: Negative exam. This exam was performed using automated exposure control, adjustment of mA or kV according to patient size, and/or use of iterative reconstruction technique Electronically signed by Pal Grissom 03/27/2019 2:36 PM 03/27/19 1436 Interpreting Physician: Pal Grissom MD Dictated Date/Time: 03/27/19 1435 cc: Jules Haq MD;) - CONSULTS/PCP/HOSPITALIST Notification #1 *Consult/PCP/Hospitalist*: Dr. Hirsch Time Discussed: 15:55 Reason/Comments: Dr. Haq consulted with Dr. Hirsch about patient Consult Disposition: Will see in ED, Admit Departure - Departure Date of Disposition Decision: 03/27/19 Time of Disposition Decision: 15:56 DIAGNOSIS: Narcotic abuse, Atrial flutter Disposition: ADMITTED INPATIENT 09 Certified Medical Emergency: Emergent Condition: Stable - Critical Care Note This patient required my direct & personal management of CC.: No Attestation - Physician/ NAVA Attestation The physician spent face to face time with patient:: Yes Advanced Practice Provider documentation review:: Supervising physician onsite and consulted in the evaluation and care of this patient. The physician did have a face to face encounter with the patient. This chart was documented by the indicated scribe, (Alize Hallman Scribe) and accurately reflects the services I performed and decisions made by me, Jules Haq MD, as attested by the provider's signature.
[2019-03-27] MEDS ORDERED: TYLENOL PO PRN (18:25)
[2019-03-27] MEDS ORDERED: ZOFRAN IV PRN (18:25)
[2019-03-27] MEDS ORDERED: NS 1,000 ML IV SCH (18:25)
--- NOTE | 2019-03-27 20:01 | HISTORY AND PHYSICAL ---
PRIMARY CARE PHYSICIAN: Listed as none. CHIEF COMPLAINT: Was found unresponsive with CPR initiated for 30 seconds to a minute by daughter after taking someone else's methadone today. HISTORY OF PRESENTING ILLNESS: This is a 68-year-old male who presents to [facility] ER after he was found unresponsive and his daughter began CPR for 30 seconds to a minute. The patient admitted to taking a small bottle of liquid methadone that belonged to someone else today. Daughter also states in a private conversation outside of the room that her dad has been over taking medications for quite some time, is out of Suboxone and is not due for refill for 2 weeks. Also had 90 pills of Lyrica filled recently and now only has 17 left so this has been a problem in the past of over taking his medications. He does state that this is not an intentional suicide attempt. It is due to him having pain and unable to get his pain under control. He is currently alert and awake and answers all questions appropriately and will be admitted for further evaluation and treatment. PAST MEDICAL HISTORY: Rheumatoid arthritis, hypertension, chronic pain, migraines, depression. PAST SURGICAL HISTORY: Had a cyst removed. FAMILY HISTORY: Reviewed and noncontributory. SOCIAL HISTORY: Currently lives alone. Denies any tobacco, alcohol or illicit drug use but again has taken someone else's methadone and has overtaken his prescription medications. ALLERGIES: No known drug allergies. HOME MEDICATIONS: A current list will need to be obtained, reconciled, reviewed and restarted as appropriate. Will place an order for nursing to update and confirm home medications. LABORATORY DATA: White blood cell count of 10.36, hemoglobin 12.2, hematocrit 37.3, platelets 204,000. Sodium 133, potassium 5.1, chloride 93, CO2 25, BUN of 30, creatinine 1.4, glucose 104, magnesium 2. Troponin T high sensitivity of 22, TSH of 1.13. Urine drug screen presumptive positive for methadone and tricyclics. Chest x-ray significant cardiomegaly and pulmonary cardiovascular congestion. Head CT was a negative exam. EKG showed atrial flutter with a variable AV block that appears to be new. REVIEW OF SYSTEMS: He denied any fever, chills, blurred vision, dizziness, chest pain, coughing, shortness of breath, abdominal pain, constipation, diarrhea, burning or hurting with urination. He has chronic generalized pain from his rheumatoid arthritis. PHYSICAL EXAMINATION: On arrival he had a temperature of 97.9 degrees, pulse 94, respirations 20, blood pressure 106/77, saturating 97% on room air. GENERAL: This is a 68-year-old male who is lying in the bed and answers questions appropriately. HEENT: Normocephalic, atraumatic. Normal ENT inspection. Oropharynx and nares are clear. Pupils are equal, round, reactive to light, accommodation. Extraocular movements are intact. NECK: Normal inspection, normal range of motion. LUNGS: Clear to auscultation bilaterally with equal lung expansion and chest wall movement. HEART: With regular rate and rhythm. No murmurs, rubs, or gallops but on arrival patient was noted to be in atrial flutter at 95 which appears to be a new onset. ABDOMEN: Soft, nontender, nondistended. Bowel sounds are present x4 quadrants. MUSCULOSKELETAL: 5/5 strength x4 extremities. SKIN: He is noted to have some redness to his right 2nd toe. States that he has bumped it recently so we are going to x-ray that and rule out any fracture. It is mildly warm to touch, edematous and erythematous. NEUROLOGICAL: The cranial nerves 2-12 appear grossly intact. ASSESSMENT: 1. Unintentional methadone overdose. 2. Atrial flutter, new onset. 3. Acute kidney injury. 4. Medication noncompliance. 5. Hypertension . PLAN: He will be admitted to the medical unit, placed on telemetry. We will do an x-ray of his right 2nd toe. Place on normal saline at 75 mL an hour, will place him on Cardizem 30 mg p.o. q.6 hours. Will check an echocardiogram in the a.m. I had a lengthy conversation with the daughter who is very concerned about her dad over taking medications. Again, he is out of his Suboxone and should have at least a 2 week supply left before he is refilled again, he is almost out of Lyrica after he had 90 pills refilled recently only has 17 left in the bottle according to the daughter, this has been an issue in the past and again she is the one that started the CPR on her dad when she found him unresponsive today so I will discuss this with attending and we will more than likely once we get his medical under control will consult Rose Salazar and further orders after seen by attending. Dictated by DOMINICK Montiel for Leonardo Hirsch MD cc: MD Leonardo Coulter MD
--- NOTE | 2019-03-27 20:08 | HISTORY AND PHYSICAL ---
ADDENDUM: Patient seen and examined by myself. Full note dictated and discussed with nurse practitioner. Patient presented to the hospital after being found unresponsive. EMS was called. CPR was performed on site. Unfortunately, the patient has a longstanding history of opiate use and abuse. He has been on Suboxone for approximately 6 months and had actually been stable, has not failed any outpatient drug screens; however, the daughter was called by the neighbor today stating that Mr. Pritchett had passed out in the laundry room. Upon awakening after CPR, he does note that he had taken methadone. He is totally out of his Suboxone. He has taken his entire dose in 2 weeks instead of 4 weeks. He has also overtaken his Lyrica. 40 minutes were spent in direct consultation with the daughter regarding Mr. Pritchett's addiction, abuse, overdose. Discussed with her that he is at grave risk of doing this again. We will continue him on Suboxone, although discussed with her and Mr. Pritchett that he will be called in separately for spot checks. He will be spot drug tested as well as counting his scripts. If he fails any of those, he will be dismissed. Discussed with the daughter that he is highly likely unfortunately to fail further management and to overdose again in the future. Hopefully, Suboxone will decrease that overdose risk. Patient's daughter agrees, understands the gravity of either situation, Suboxone or without Suboxone and agrees to continue pressing forward with Suboxone to see if medication-assisted therapy can help prevent this further in the future. cc: Leonardo Hirsch MD
[2019-03-27] MEDS ORDERED: PNEUMOVAX 23 IM ONE (20:15)
--- NOTE | 2019-03-27 20:25 | Diag Imaging Result Doc PS360 ---
EXAM: TOE(S)-RIGHT HISTORY: Right 2nd toe injury TECHNIQUE: Three views COMPARISON: None. FINDINGS: The bones are osteopenic. Long-standing arthritis particularly to the first metatarsal phalangeal joint. No fracture. No dislocation. IMPRESSION: No acute bony injury. Electronically signed by Tyrone De La Garza 03/27/2019 8:23 PM
[2019-03-27] MEDS: CARDIZEM PO SCH (20:43)
[2019-03-28] MEDS: CARDIZEM PO SCH ×4 (03:24→21:32)
[2019-03-28 06:26] LABS: BASO# 0.01 X1000 (0.0-0.2); BASO% 0.1 % (0.0-0.8); EOS# 0.13 X1000 (0.0-0.7); EOS% 1.3 % (0.0-10.0); HEMOGLOBIN 12.7 g/dL (14.0-18.0); IMM GRAN# 0.04 X1000 (0.0-0.04); IMM GRAN% 0.4 % (0.0-0.5); LYMPH# 3.25 X1000 (1.2-3.4); LYMPH% 32.1 % (20.5-51.1); MCH 27.4 PG (27-31); MCHC 31.8 g/dL (33-37); MCV 86.4 FL (81-99); MONO# 0.73 X1000 (0.11-0.59); MONO% 7.2 % (1.7-9.3); MPV 10.2 FL (7.4-10.4); NEUT# 5.97 X1000 (1.4-6.5); NEUT% 58.9 % (42.2-75.2); PLT 183 X1000 (130-400); RBC 4.63 XMIL (4.7-6.1); RDW 18.7 % (11.5-14.5); WBC 10.13 X1000 (4.8-10.8)
[2019-03-28 06:51] LABS: AGAP 13; BUN 31 mg/dL (8-22); CALCIUM 8.1 mg/dL (8.8-10.2); CHLORIDE 101 mmol/L (98-107); COSMO 278; CREATININE 0.9 mg/dL (0.7-1.2); ESTIMATED GFR > 60; GLUCOSE 83 mg/dL (70-104); SODIUM 136 mmol/L (136-145); TCO2 23 mmol/L (25-35)
[2019-03-28] MEDS: LASIX PO SCH (08:26)
[2019-03-28] MEDS: LYRICA PO SCH ×2 (08:26→21:31)
[2019-03-28] MEDS: PRILOSEC PO SCH (08:26)
[2019-03-28] MEDS: FIORICET PO SCH ×2 (08:26→21:31)
[2019-03-28] MEDS: PRINIVIL PO SCH ×2 (08:26→21:32)
[2019-03-28] MEDS: SUBOXONE 8 MG/2 MG FILM SL SCH ×2 (08:27→21:32)
[2019-03-28] MEDS: SUBOXONE 2 MG/0.5 MG FILM SL SCH (13:23)
--- NOTE | 2019-03-28 19:20 | PROGRESS NOTE ---
DATE: 03/28/2019 SUBJECTIVE: The patient notes that he made a mistake and should not have taken those extra medications. He denies any fevers or chills. States overall he is feeling better. Denies any respiratory issues. PHYSICAL EXAM: Vital signs: Temperature 97.7 degrees, pulse 81, respiratory rate 18, BP 140/80. General: The patient is pleasant. He is in no distress. He is lying in bed. HEENT: Normocephalic. Neck: Supple. Cardiovascular: Regular rate. Chest: Clear. Abdomen: Soft. Extremities: Moves all extremities. ASSESSMENT: 1. Unintentional methadone overdose. 2. Atrial flutter, stable. 3. Acute kidney injury, resolved. Creatinine is 1.4 when admitted, 0.9 currently. 4. Hyponatremia, stable. 5. Hypocalcemia. PLAN: We are going to continue the patient in the hospital. We are going to attempt to increase the Suboxone, continue counseling, further orders as needed. cc: Leonardo Hirsch MD
[2019-03-28] MEDS ORDERED: ZOVIRAX PO SCH (21:00)
[2019-03-28] MEDS ORDERED: ARAVA PO SCH (21:00)
[2019-03-28] MEDS ORDERED: DESYREL PO SCH (21:00)
[2019-03-28] MEDS ORDERED: PAMELOR PO SCH (21:00)
--- NOTE | 2019-03-28 22:18 | ECHO REPORT ---
ORDER DATE: 03/28/2019 MEASUREMENTS: 1. Septal thickness 1.1. 2. Left ventricular internal diameter in diastole 4.8. 3. Posterior wall thickness 0.9. 4. Left atrium 3.6. 5. Aortic root 3.8. SUMMARY: 1. Technically difficult study due to limited acoustic window quality. 2. Aortic valve is trileaflet and opens normally on 2-dimensional images. Peak gradient across the aortic valve is 12 mmHg. Mitral and tricuspid valves are without evidence of structural abnormality, while pulmonic valve is not well demonstrated. The aortic root is borderline enlarged. 3. Normal left ventricular dimensions demonstrated. The estimated left ventricular ejection fraction appears to be at least 50%. No obvious regional wall motion abnormality can be appreciated. Left atrium, right atrium, and right ventricle are normal in size with grossly preserved right ventricular systolic function. 4. No pericardial effusion. 5. Appearance of inferior vena cava suggests normal central venous pressure. cc: MD Berenice Woods CRNP Gregory S. Cheatham, MD
[2019-03-29] MEDS: CARDIZEM PO SCH ×3 (03:59→12:44)
[2019-03-29] MEDS: PRILOSEC PO SCH (08:19)
[2019-03-29] MEDS: LASIX PO SCH (08:19)
[2019-03-29] MEDS: PRINIVIL PO SCH (08:20)
[2019-03-29] MEDS: FIORICET PO SCH (08:20)
[2019-03-29] MEDS: SUBOXONE 8 MG/2 MG FILM SL SCH (08:20)
[2019-03-29] MEDS: LYRICA PO SCH (08:20)
[2019-03-29 11:30] VITALS: BP 118/83
[2019-03-29] MEDS: SUBOXONE 2 MG/0.5 MG FILM SL SCH (12:44)
--- NOTE | 2019-03-29 20:03 | DISCHARGE SUMMARY ---
ADMISSION DATE: 03/27/2019 DISCHARGE DATE: 03/29/2019 PRIMARY CARE PHYSICIAN: Listed as none. ADMISSION DIAGNOSES: 1. An unintentional methadone overdose. 2. Atrial flutter, new onset. 3. Acute kidney injury. 4. Medication noncompliance. 5. Hypertension. DISCHARGE DIAGNOSES: 1. Unintentional methadone overdose. 2. Atrial flutter, stable. 3. An acute kidney injury resolved. 4. Hyponatremia resolved. SUMMARY OF FINDINGS: This is a 68-year-old male who presented to the ER after he was found unresponsive by his daughter who began CPR for approximately 30 seconds to a minute, admitted to taking a small bottle of liquid methadone that belonged to someone else, in a private conversation outside the patient's daughter states that he had been over taking his medications for quite some time. He states that this is not an intentional suicide attempt. He was admitted, was found to be in atrial flutter which was a new onset. We placed him on Cardizem 30 mg p.o. q.6 hours and we did an echocardiogram that showed an ejection fraction of 50%. No other abnormalities were noted. We did do an x-ray of his right 2nd toe due to him having injury to it from stubbing it at his home but there was no acute bony injury so it is now felt that he can safely be discharged home. DISCHARGE MEDICATIONS: Include Zovirax 800 mg p.o. at bedtime, butalbital 1 p.o. b.i.d., Lasix 40 mg p.o. daily, leflunomide 20 mg p.o. at bedtime, lisinopril 20 mg p.o. b.i.d., Pamelor 75 mg p.o. at bedtime, omeprazole 40 mg p.o. daily, pregabalin 150 mg p.o. b.i.d., trazodone 50 mg 2 tablets p.o. at bedtime and Cardizem 120 mg p.o. daily. FOLLOWUP: He will need to follow up with primary care physician in the next 1 to 2 weeks. All discharge instructions have been reviewed with the patient and he verbalized understanding. TIME SPENT: 35 minutes. Dictated by DOMINICK Montiel for Leonardo Hirsch MD cc: DOMINICK Montiel, MD
--- NOTE | 2019-03-30 03:56 | DISCHARGE SUMMARY ---
ADMISSION DATE: 03/27/2019 DISCHARGE DATE: 03/29/2019 ADDENDUM: Patient seen and examined by myself. Full note dictated and discussed with nurse practitioner. Patient will be discharged home. 30 minutes was spent by myself personally today discussing with him the perils of use, abuse and the importance all having close outpatient follow- up and of allowing his daughter to help him manage his medications as once again he has overused his medications. The patient states he understands and is willing to comply. We did increase his Suboxone but we will dismiss him and he understands this if he fails again. cc: Leonardo Hirsch MD
== END 2019-03-29 13:04 | disposition home or self-care (01) | DRG 918 ==
LOC: P.ED 13:44 → SUATTDRO 18:04 → P.MEDSURG 18:04
PROVIDERS: ADMIT Family Medicine; ATTEND Family Medicine

== ENCOUNTER 2019-03-29 18:49 | Inpatient (IN) ==
[~2019-03-29 18:49] MED LIST: NS 1,000 ML IV ONE; NS 1,000 ML ONE
[2019-03-29 19:02] LABS: BASO# 0.01 X1000 (0.0-0.2); BASO% 0.1 % (0.0-0.8); EOS# 0.13 X1000 (0.0-0.7); EOS% 1.4 % (0.0-10.0); HEMATOCRIT 41.5 % (42.0-52.0); HEMOGLOBIN 13.5 g/dL (14.0-18.0); IMM GRAN% 1.1 % (0.0-0.5); LYMPH# 2.49 X1000 (1.2-3.4); LYMPH% 27.2 % (20.5-51.1); MCH 27.2 PG (27-31); MCHC 32.5 g/dL (33-37); MCV 83.5 FL (81-99); MONO# 0.73 X1000 (0.11-0.59); MPV 10.3 FL (7.4-10.4); NEUT% 62.2 % (42.2-75.2); PLT 249 X1000 (130-400); RBC 4.97 XMIL (4.7-6.1); WBC 9.16 X1000 (4.8-10.8)
[2019-03-29] MEDS ORDERED: LANOXIN IV ONE ×2 (19:24→21:55)
[2019-03-29 19:28] LABS: ALBUMIN 3.8 g/dL (3.5-5.0); CALCIUM 8.6 mg/dL (8.8-10.2); CREATININE 1.7 mg/dL (0.7-1.2); POTASSIUM 4.6 mmol/L (3.5-5.1); TOTAL BILIRUBIN 0.5 mg/dL (0.20-1.00); TOTAL PROTEIN 6.3 g/dL (6.3-8.3)
[2019-03-29] MEDS ORDERED: NS 1,000 ML IV ONE (21:55)
--- NOTE | 2019-03-29 22:12 | EKG Report ---
Test Performed on : 03/29/2019 6:33:27 PM Test Reason : cp Blood Pressure : / mmHG Vent. Rate : 112 BPM Atrial Rate : 088 BPM P-R Int : 000 ms QRS Dur : 096 ms QT Int : 278 ms P-R-T Axes : 000 -43 073 degrees QTc Int : 379 ms Atrial fibrillation. with rapid ventricular response. Left axis deviation Possible Anterior infarct , age undetermined Abnormal ECG When compared with ECG of 27-MAR-2019 13:49, (Unconfirmed) Atrial fibrillation. has replaced Atrial flutter. Unconfirmed Result
--- NOTE | 2019-03-29 22:20 | Diag Imaging Result Doc PS360 ---
EXAM: CHEST-1 VIEW INDICATION: cp TECHNIQUE: One view COMPARISON: 03/27/2019 FINDINGS: Mild pulmonary venous congestion is approximately stable. No new consolidation is identified. There is stable cardiomegaly. IMPRESSION: Stable chest. Electronically signed by Joshua Silva 03/29/2019 10:17 PM
[2019-03-30 02:28] LABS: OCCULT BLOOD 1 POSITIVE (NEGATIVE)
[2019-03-30 02:48] LABS: C DIFF TOXIN PL NEGATIVE (NEGATIVE)
[2019-03-30] MEDS ORDERED: PROTONIX IV ONE (02:55)
[2019-03-30] MEDS ORDERED: SODIUM CHLORIDE 0.9% INJ ONE (02:55)
[2019-03-30 04:20] LABS: HEMATOCRIT 42.5 % (42.0-52.0); HEMOGLOBIN 13.9 g/dL (14.0-18.0)
[2019-03-30] MEDS ORDERED: ZOFRAN IV PRN (09:31)
--- NOTE | 2019-03-30 09:36 | EKG Report ---
Test Performed on : 03/30/2019 09:30:51 AM Test Reason : suspected rhythm change from afib to aflutter Blood Pressure : / mmHG Vent. Rate : 086 BPM Atrial Rate : 125 BPM P-R Int : 000 ms QRS Dur : 096 ms QT Int : 350 ms P-R-T Axes : 000 -39 104 degrees QTc Int : 418 ms Atrial fibrillation. Left axis deviation ST & T wave abnormality, consider lateral ischemia Abnormal ECG When compared with ECG of 29-MAR-2019 18:33, (Unconfirmed) T wave inversion now evident in Lateral leads Unconfirmed Result
--- NOTE | 2019-03-30 10:00 | ED EKG INTERP ---
This chart was entered by Nuvia Luis Scribe, acting as scribe for Zachary Negrete MD. EKG Interpretation - EKG Time of EKG reading by physician:: 09:30 EKG Read and Signed by:: Zachary Negrete EKG Interpretation (*Must complete 3 of following elements*): Abnormal Rate: 86 Rhythm: Afib Gordon: left QRS: normal [place] Interval: normal ST Wave: non-specific ST changes (consider lateral ischemia) Attestation - Physician/ NAVA Attestation Patient care was provided by Advanced Practice Provider:: No The physician spent face to face time with patient:: Yes Advanced Practice Provider documentation review:: Supervising physician onsite and consulted in the evaluation and care of this patient. The physician did have a face to face encounter with the patient. This chart was documented by the indicated scribe, (Nuvia Luis Scribe) and accurately reflects the services I performed and decisions made by me, Zachary Negrete MD, as attested by the provider's signature.
[2019-03-30] MEDS ORDERED: SUBOXONE 8 MG/2 MG FILM SL SCH (15:00)
--- NOTE | 2019-03-30 18:22 | HISTORY AND PHYSICAL ---
CHIEF COMPLAINT: Syncope. HISTORY OF PRESENT ILLNESS: The patient is a 68-year-old male who actually was just in the hospital for 2 days and had absolutely no symptoms of syncope. He was admitted with the initial thought that it was secondary to his methadone use, which he does not have a prescription for. He was able to ambulate in the hospital. He had a full diet. He had been on telemetry with no issues. After going home, he went to the store and noted he started getting lightheaded, and he went to the restroom and sat down. Once he arrived to the ER, he has had extensive frequent episodes of diarrhea. He has had some blood in his stool as well as being heme-positive. On physical, his vital signs currently are stable. PAST MEDICAL HISTORY: Significant for rheumatoid arthritis, chronic pain, chronic pain medication abuse and overuse, migraines, depression, hypertension. SURGICAL HISTORY: He has had a cyst removed. FAMILY HISTORY: Noncontributory. SOCIAL HISTORY: The patient lives at home alone. He does have a daughter who attempts to assist, but she lives a couple of hours away. He denies smoking or drinking. ALLERGIES: NO KNOWN DRUG ALLERGIES. MEDICATIONS: Please see his discharge list from yesterday. LABORATORY DATA: Currently pending. REVIEW OF SYSTEMS: The patient currently denies any fevers, chills, cough, congestion. Does have diarrhea. Denies any knowledge of blood in his stool. Denies any nausea, vomiting. Did have a syncopal episode earlier today. Denies headaches, blurred vision, change in vision. Denies any focalized numbness, tingling, weakness in extremities. Does hurt all over, especially in his back and in joints due to his rheumatoid arthritis. PHYSICAL EXAMINATION: VITAL SIGNS: Reviewed. GENERAL: He is awake, alert, oriented. He is in no distress sitting in the bed. HEENT: Normocephalic. NECK: Supple. CARDIOVASCULAR: Regular rate. CHEST: Clear. ABDOMEN: Soft. EXTREMITIES: Moves all extremities. NEUROLOGIC: No focal changes. ASSESSMENT: 1. Syncope. 2. Diarrhea of undetermined origin. 3. Hypertension. 4. Rheumatoid arthritis. 5. Chronic pain. PLAN: We are going to admit the patient to the hospital. We are going to attempt to transfer him to [facility]. He did have some atrial flutter once in the hospital, and that seems to have resolved. He needs to be watched on telemetry, and most likely will need GI involved with his diarrhea and heme-positivity. cc: MD Pradeep Cohen MD
[2019-03-30] MEDS: NS 1,000 ML IV SCH ×4 (18:49→22:51)
[2019-03-30] MEDS ORDERED: ARAVA PO SCH (21:00)
[2019-03-30] MEDS ORDERED: ZOVIRAX PO SCH (21:00)
[2019-03-30] MEDS: PAMELOR PO SCH (21:25)
[2019-03-30] MEDS: PRINIVIL PO SCH (21:25)
[2019-03-30] MEDS: LYRICA PO SCH (21:25)
[2019-03-30] MEDS: DESYREL PO SCH (21:25)
[2019-03-30] MEDS: ZOVIRAX PO SCH (21:25)
[2019-03-30] MEDS: SUBOXONE 8 MG/2 MG FILM SL SCH (21:26)
[2019-03-30] MEDS: ARAVA PO SCH (21:26)
[2019-03-31] MEDS: TYLENOL PO PRN ×2 (05:40→16:14)
[2019-03-31] MEDS: PRILOSEC PO SCH (06:18)
[2019-03-31] MEDS: LYRICA PO SCH ×2 (08:25→20:51)
[2019-03-31] MEDS: PRINIVIL PO SCH ×2 (08:25→20:50)
[2019-03-31] MEDS: SUBOXONE 8 MG/2 MG FILM SL SCH ×3 (08:25→20:51)
[2019-03-31] MEDS: CARDIZEM CD PO SCH (08:25)
[2019-03-31 08:40] LABS: HEMATOCRIT 36.5 % (42.0-52.0); HEMOGLOBIN 11.9 g/dL (14.0-18.0); MCH 27.4 PG (27-31); MCHC 32.6 g/dL (33-37); MCV 84.1 FL (81-99); MPV 10.2 FL (7.4-10.4); RBC 4.34 XMIL (4.7-6.1); RDW 16.9 % (11.5-14.5); WBC 6.25 X1000 (4.8-10.8)
[2019-03-31 09:07] LABS: AGAP 14; ALB/GLOB RATIO 1.1; ALBUMIN 3.1 g/dL (3.5-5.0); ALKALINE PHOSPHATASE 135 U/L (32-122); BUN 15 mg/dL (8-22); CALCIUM 8.3 mg/dL (8.8-10.2); CHLORIDE 101 mmol/L (98-107); COSMO 269; CREATININE 0.6 mg/dL (0.7-1.2); ESTIMATED GFR > 60; GLUCOSE 68 mg/dL (70-104); GOT 82 U/L (10-34); GPT 193 U/L (10-44); MAGNESIUM 1.5 mg/dL (1.5-2.7); POTASSIUM 4.1 mmol/L (3.5-5.1); SODIUM 135 mmol/L (136-145); TCO2 20 mmol/L (25-35); TOTAL BILIRUBIN 0.71 mg/dL (0.20-1.00); TOTAL PROTEIN 5.8 g/dL (6.3-8.3)
--- NOTE | 2019-03-31 10:05 | PROGRESS NOTE ---
DATE: 03/31/2019 SUBJECTIVE: The patient was apparently transferred over from [place] yesterday, and accepted by the Hospitalist Service, who had admitted him at that facility. He was transferred to our service, but I was never contacted personally about this transfer. I confirmed that the patient was a patient of Dr. Watters, and have come in to see the patient today. He was apparently admitted for syncope at [place], and then noted to have bright red blood per rectum, and was sent to [facility] for consultation with GI to follow up his hemoglobin. OBJECTIVE: Vital Signs: Temperature 97.6, pulse 81, respirations 18, blood pressure 143/83, saturating 92% on room air. General: The patient is sitting up in bed. He is awake, alert, oriented, conversive, and appropriate. HEENT: Sclerae are anicteric. Lungs: Clear to auscultation. Cardiovascular: Regular. Abdomen: Shows an umbilical hernia, which is not protuberant. Bowel sounds are present. LABORATORY DATA: Hemoglobin is 11.9, which is a drop from the previous day's reading of 13.9. BUN is 15, which is actually lower than the previous reading, and creatinine is 0.6. AST is 82, ALT 193, alkaline phosphatase 135. ASSESSMENT AND PLAN: 1. The patient's syncope has been attributed to his drug use in the past. We are going to keep him on telemetry monitoring and make sure there is nothing awry there. He has had no other cardiovascular complaints. 2. The patient had diarrhea with hematochezia in the emergency room. We will get Gastroenterology consulted to take a look at this. 3. Known history of rheumatoid arthritis with chronic pain management. At the present time, the patient is taking Suboxone. 4. The patient has a history of hypertension. It is reasonably well controlled in the hospital. Given the fact that he may be suffering from a gastrointestinal bleed, I would rather it be a little bit on the high end as opposed to on the low. 5. Dr. Watters will take over care tomorrow. cc: MD Pradeep Calderon MD
[2019-03-31] MEDS: NS 1,000 ML IV SCH (13:10)
--- NOTE | 2019-03-31 16:11 | GASTROENTEROLOGY CONSULTATION ---
DATE: 03/31/2019 REASON FOR CONSULTATION: Rectal bleeding, syncope. HISTORY OF PRESENT ILLNESS: This is a 68-year-old male who was apparently in the hospital several days ago with some side effects from methadone use which he does not have a prescription for. At that time he was tolerating a diet. He was walking in the halls. There was no abnormality seen on his telemetry, apparently he went home and went to the store. He became light-headed went to the restroom and had some diarrhea with noted blood and Hemoccult-positive stool so he was admitted for further evaluation. Patient states currently he does not believe he has had any further rectal bleeding. He is denying abdominal pain. No reported nausea or vomiting. He states he had a colonoscopy by Dr. Fernando but it was probably over for 10 years ago. PAST MEDICAL HISTORY: Rheumatoid arthritis, chronic pain, pain medication abuse, migraines, depression, hypertension. PAST SURGICAL HISTORY: Had a cyst removed. Other than that he had a colonoscopy maybe over 10 years ago. ALLERGIES: No known drug allergies. HOME MEDICATIONS: 1. Zovirax 800 mg every night. 2. Suboxone 8 mg 3 times a day. 3. Butalbital/acetaminophen 1 tablet twice a day. 4. Cardizem 120 mg daily. 5. Lasix 40 mg daily. 6. Leflunomide 20 mg every night. 7. Prinivil 20 mg twice a day. 8. Pamelor 75 mg every night. 9. Prilosec 40 mg daily. 10. Lyrica 150 mg twice a day. 11. Trazodone 2 tablets every night. SOCIAL HISTORY: He lives at home alone. He does have 1 child. He is disabled. He denies tobacco or alcohol use. He has an apparent methadone and he also is on Suboxone. REVIEW OF SYSTEMS: Per history of present illness. PHYSICAL EXAMINATION: Vital Signs: Temperature 98.1 degrees, pulse 86, respirations 18, blood pressure 123/69. General: Patient is awake, alert, in no acute distress. HEENT: Normocephalic atraumatic. Pupils equal, round, reactive to light. Sclerae nonicteric. Respiratory: Lung sounds essentially clear. Cardiovascular: Regular rate and rhythm. Abdomen: Umbilical hernia noted, otherwise soft nontender positive bowel sounds. Otherwise obese. Extremities: With no lower extremity edema noted. Neurological: Cranial nerves 2-12 grossly intact. Patient is awake and alert. LABORATORY: Hematology: WBC 6.25, hemoglobin 11.9, hematocrit 36.5, MCV 84.1, platelets 176,000. Chemistry: Sodium 135, potassium 4.1, chloride 101, CO2 of 20, BUN 15, creatinine 0.6, glucose 68. Calcium 8.3, total bilirubin 0.71, AST 82, ALT 193, alkaline phosphatase 135. C.- difficile antigen was negative. Clostridium difficile toxin was negative. ASSESSMENT AND PLAN: 1. Syncope, unknown cause. Patient has had some drug use. 2. Diarrhea and hematochezia. Hemoglobin and hematocrit have dropped only slightly. Will continue to follow. Clostridium difficile tests were negative. 3. History of rheumatoid arthritis. Patient is on Suboxone. 4. He does have a noted elevation in his liver function tests. We will repeat those tomorrow. Further workup will be made as needed. We will order hepatitis profile. PLAN: Continue to follow. Further plans to be made as needed. I have discussed this case with Dr. Mattson. Dictated by DOMINICK Nichole for Balbir Mattson MD cc: MD Balbir West MD Russell T. Barr, MD
[2019-03-31] MEDS: DESYREL PO SCH (20:50)
[2019-03-31] MEDS: ZOVIRAX PO SCH (20:50)
[2019-03-31] MEDS: PAMELOR PO SCH (20:50)
[2019-03-31] MEDS: ARAVA PO SCH (20:50)
[2019-04-01] MEDS: NS 1,000 ML IV SCH (02:07)
[2019-04-01] MEDS: PRILOSEC PO SCH (06:12)
[2019-04-01] MEDS: LYRICA PO SCH ×2 (08:25→21:51)
[2019-04-01] MEDS: CARDIZEM CD PO SCH (08:26)
[2019-04-01] MEDS: TYLENOL PO PRN (08:26)
[2019-04-01] MEDS: PRINIVIL PO SCH ×2 (08:26→21:51)
[2019-04-01] MEDS: SUBOXONE 8 MG/2 MG FILM SL SCH ×3 (08:26→21:51)
[2019-04-01 09:27] LABS: BASO# 0.01 X1000 (0.0-0.2); BASO% 0.2 % (0.0-0.8); EOS% 2.1 % (0.0-10.0); HEMATOCRIT 35.4 % (42.0-52.0); HEMOGLOBIN 11.5 g/dL (14.0-18.0); IMM GRAN# 0.04 X1000 (0.0-0.04); IMM GRAN% 0.9 % (0.0-0.5); LYMPH# 1.65 X1000 (1.2-3.4); LYMPH% 35.3 % (20.5-51.1); MCH 27.3 PG (27-31); MCHC 32.5 g/dL (33-37); MCV 84.1 FL (81-99); MONO# 0.43 X1000 (0.11-0.59); MONO% 9.2 % (1.7-9.3); MPV 9.9 FL (7.4-10.4); NEUT# 2.44 X1000 (1.4-6.5); NEUT% 52.3 % (42.2-75.2); PLT 175 X1000 (130-400); RBC 4.21 XMIL (4.7-6.1); RDW 16.9 % (11.5-14.5); WBC 4.67 X1000 (4.8-10.8)
[2019-04-01 09:57] LABS: AGAP 11; ALB/GLOB RATIO 1.3; ALKALINE PHOSPHATASE 127 U/L (32-122); BUN 9 mg/dL (8-22); CALCIUM 8.1 mg/dL (8.8-10.2); CHLORIDE 104 mmol/L (98-107); COSMO 272; CREATININE 0.6 mg/dL (0.7-1.2); ESTIMATED GFR > 60; GLUCOSE 115 mg/dL (70-104); GOT 55 U/L (10-34); GPT 166 U/L (10-44); POTASSIUM 3.8 mmol/L (3.5-5.1); SODIUM 136 mmol/L (136-145); TCO2 21 mmol/L (25-35); TOTAL BILIRUBIN 0.45 mg/dL (0.20-1.00); TOTAL PROTEIN 5.4 g/dL (6.3-8.3)
--- NOTE | 2019-04-01 20:48 | GASTROENTEROLOGY PROGRESS NOTE ---
DATE: 04/01/2019 SUBJECTIVE: Patient is awake and alert at the time of my visit. He has denied any further bleeding. Per intake and output report, he has not had a bowel movement in the last several days. He did tolerate his breakfast, he states. No reported abdominal pain. OBJECTIVE: Vital Signs: Temperature 97.6 degrees, pulse 68, blood pressure 143/53. General: Patient is awake, alert, in no acute distress. Abdomen: Soft. LABORATORY: Hematology: WBC 4.67, hemoglobin 11.5, hematocrit 35.4, MCV 84.1, platelet 175,000. Chemistry: Sodium 136, potassium 3.8, chloride 104, CO2 21, BUN 9, creatinine 0.6, glucose 115, total bilirubin 0.45, AST 55, ALT 166, alkaline phosphatase 127. ASSESSMENT AND PLAN: 1. Recent syncope. Patient has history of drug use. 2. Diarrhea and hematochezia. Patient has not had any further bleeding over the last several days. Hemoglobin and hematocrit are stable. Clostridium difficile test was negative. 3. History of rheumatoid arthritis. Patient is on Suboxone. 4. Elevated liver function tests. Hepatitis profile is pending. 5. Will continue to follow and further plans will be made as needed. I have discussed this case with Dr. Mattson. Dictated by DOMINICK Nichole for Balbir Mattson MD cc: DOMINICK Newell MD Russell T. Barr, MD
[2019-04-01] MEDS ORDERED: CARDIZEM CD PO SCH (21:00)
[2019-04-01] MEDS: DESYREL PO SCH (21:51)
[2019-04-01] MEDS: ZOVIRAX PO SCH (21:51)
[2019-04-01] MEDS: PAMELOR PO SCH (21:52)
[2019-04-01] MEDS: ARAVA PO SCH (21:52)
[2019-04-02 03:13] VITALS: BP 110/55
[2019-04-02] MEDS: PRILOSEC PO SCH (06:01)
[2019-04-02 08:12] LABS: HEMATOCRIT 35.2 % (42.0-52.0); HEMOGLOBIN 11.5 g/dL (14.0-18.0)
[2019-04-02] MEDS: PRINIVIL PO SCH (09:32)
[2019-04-02] MEDS: LYRICA PO SCH (09:32)
[2019-04-02] MEDS: SUBOXONE 8 MG/2 MG FILM SL SCH (09:33)
--- NOTE | 2019-04-02 13:05 | GASTROENTEROLOGY PROGRESS NOTE ---
DATE: 04/02/2019 SUBJECTIVE: The patient was awake and alert. No acute distress. Hemoglobin and hematocrit stable over the last several days. He has denied any further rectal bleeding. He states he believes he will go home today. OBJECTIVE: Vital Signs: Temperature 98.3 degrees, pulse 72, respirations 18, blood pressure 110/55. General: The patient is awake and alert, in no acute distress. LABORATORY DATA: Hematology: Hemoglobin 11.5, hematocrit 35.2. ASSESSMENT AND PLAN: 1. Recent syncope. 2. Diarrhea and hematochezia. No further bleeding. Hemoglobin and hematocrit have been stable. Stool studies were negative. 3. History of rheumatoid arthritis. The patient is on Suboxone. 4. Elevated liver function tests. Hepatitis profile was ordered, but not resulted yet. I believe the patient will be discharged today. I have given him contact information to call and make a followup appointment for further workup regarding elevated liver function tests. I have discussed this case with Dr. Mattson. Dictated by DOMINICK Nichole for Balbir Mattson MD cc: DOMINICK Newell MD Russell T. Barr, MD
[2019-04-02 13:30] LABS: HEPATITIS PROFILE ACUTE SEE COMMENTS
--- NOTE | 2019-04-03 08:02 | DISCHARGE SUMMARY ---
ADMISSION DATE: 03/30/2019 DISCHARGE DATE: 04/02/2019 FINAL DIAGNOSES: 1. Diarrhea with hematochezia, resolved. 2. Chronic rheumatoid arthritis with multiple chronic deformities. 3. Chronic pain secondary to rheumatoid arthritis. 4. Opioid abuse disorder. 5. Recurrent elevation of transaminases, hepatitis profile pending. 6. Essential hypertension. 7. Recent onset atrial fibrillation. HOSPITAL COURSE: Mr. Pritchett was recently admitted through [facility] with altered mental status and a suspected methadone overdose. After he was discharged and later the same day apparently returned after experiencing an episode of GI motility associated with diarrhea with some bright red blood. He apparently had a near syncopal episode associated with this, probably due to vasovagal phenomenon. He was readmitted to [place] and subsequently transferred to the [facility]. He was noted to have atrial flutter on admission EKG. Please see dictated history and physical for further details. Here at the [facility], he had no further diarrhea. His child monitor showed chronic atrial fibrillation and his diltiazem dose was increased to control his heart rate. His echocardiogram documented normal left ventricular function with left atrial size of 3.6 cm. His previous Suboxone was continued and he was given a prescription for 12 doses (4 days) until he can contact Dr. Hirsch for further prescription refills. He is to return to my office in 8-14 days for transition of care visit. HOME MEDICATIONS: Acyclovir 800 mg at bedtime, Suboxone 8/2 mg film 3 times a day, diltiazem 240 mg CD capsule at bedtime, Arava 20 mg daily, lisinopril 20 mg twice a day, nortriptyline 75 mg at bedtime, omeprazole 40 mg daily, Lyrica 150 mg twice a day, trazodone 100 mg at bedtime. cc: Pradeep Watters MD
== END 2019-04-02 11:20 | disposition home or self-care (01) | DRG 378 ==
LOC: P.ED 18:49 → P.EDIPHOLD 03-30 11:46 → SUPCPDRO 03-30 11:46 → SUATTDRO 03-30 11:46
PROVIDERS: ADMIT Internal Medicine; ATTEND Internal Medicine